=== PATIENT | male | born 1995 | race Caucasian/White ===

== ENCOUNTER 2016-10-11 16:09 | Emergency (ER) | payer OTHER ==
[2016-10-11] MEDS ORDERED: KETOROLAC TROMETHAMINE 60 MG/2 ML SDV IM ONE (16:47)
--- NOTE | 2016-10-11 16:49 | ER Document Report ---
ED Medical Screen (RME) - General Chief Complaint: Groin Pain Stated Complaint: GROIN INJURY Time Seen by Provider: 10/11/16 16:41 Mode of Arrival: Ambulatory Information source: Patient Notes: Patient presents emergency department with left-sided testicular pain that started yesterday. Patient reports pain shoots up. Patient reports pain started increased after having sex. 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 denies pain with void TRAVEL OUTSIDE OF THE [place] IN LAST 30 DAYS: No - Related Data Allergies/Adverse Reactions: cefdinir Allergy (Verified 10/11/16 16:17) hydrocodone Allergy (Verified 10/11/16 16:17) Past Medical History Renal/ Medical History: Denies: Hx Peritoneal Dialysis Physical Exam - Vital signs Vitals: Temp Pulse Resp BP Pulse Ox 98.9 F 55 L 17 131/83 H 100 10/11/16 16:18 10/11/16 16:18 10/11/16 16:18 10/11/16 16:18 10/11/16 16:18 Course - Vital Signs Vital signs: Temp Pulse Resp BP Pulse Ox 98.9 F 55 L 17 131/83 H 100 10/11/16 16:18 10/11/16 16:18 10/11/16 16:18 10/11/16 16:18 10/11/16 16:18
[2016-10-11] MEDS ORDERED: SULFAMETHOXAZOLE/TRIMETHOPRIM 800-160 MG TABLET PO ONE (20:54)
[2016-10-11] MEDS ORDERED: CLINDAMYCIN HCL 150 MG CAPSULE PO ONE (20:55)
--- NOTE | 2016-10-11 20:55 | ER Document Report ---
ED GI/ - General Mode of Arrival: Ambulatory Information source: Patient TRAVEL OUTSIDE OF THE [place] IN LAST 30 DAYS: No - HPI Patient complains to provider of: Testicular pain Associated symptoms: Other - See above - General Chief Complaint: Groin Pain Stated Complaint: testicular pain Time Seen by Provider: 10/11/16 16:41 Notes: Patient is a 21 year old male who presents to the emergency department complaining of left testicular pain. Patient reports the pain began after sexual intercourse today and is exacerbated by standing and movement, patient has not had pain similar to this before and denies any recent trauma to the area. Patient reports some swelling and redness to the area and states he started a fever while in the waiting room. Patient denies hematuria, dysuria, penile discharge, and rash. Patient states he has a right testicular cyst that he noticed in 8th grade, denies any pain in that testicle. (GABE GORMAN) - Related Data Allergies/Adverse Reactions: cefdinir Allergy (Verified 10/11/16 16:49) hydrocodone Allergy (Verified 10/11/16 16:49) Past Medical History - General Information source: Patient - Social History Smoking Status: Never Smoker Chew tobacco use (# tins/day): No Frequency of alcohol use: None Family History: Reviewed & Not Pertinent Patient has suicidal ideation: No Patient has homicidal ideation: No Review of Systems - Review of Systems Constitutional: See HPI, Fever EENT: No symptoms reported Cardiovascular: No symptoms reported Respiratory: No symptoms reported Gastrointestinal: No symptoms reported Genitourinary: denies: Dysuria, Hematuria Male Genitourinary: See HPI, Testicular pain, Other - swelling and redness right testicle. denies: Penile discharge Musculoskeletal: No symptoms reported Skin: denies: Rash Hematologic/Lymphatic: No symptoms reported Neurological/Psychological: No symptoms reported -: Yes All other systems reviewed and negative Physical Exam - Vital signs Interpretation: Normal - General General appearance: Appears well, Alert - HEENT Head: Normocephalic, Atraumatic - Respiratory Respiratory status: No respiratory distress - Cardiovascular Normal capillary refill: Yes - Abdominal Distension: No distension - Genitourinary Inspection: Other - left hemiscrotum erythematous, abrasion between scrotum and thigh that is tender to palpation. Cremasteric reflex in tact. Skin is tender to palpation. No evidence of abscess. - Extremities General upper extremity: Normal inspection General lower extremity: Normal inspection - Neurological Neuro grossly intact: Yes Course - Re-evaluation Re-evalutation: 10/11/16 20:55 Ultrasound shows hydrocele on the left and cyst on the right, no acute torsion, no signs of infection on the ultrasound. Patient does have signs of cellulitis on physical exam, no evidence of vidya's gangrene. Patient will be treated with clindamycin. Asked to return for fevers, any increasing redness or any new or concerning symptoms. (BETINA AGARWAL) - Vital Signs Vital signs: Temp Pulse Resp BP Pulse Ox 98.9 F 55 L 17 131/83 H 100 10/11/16 16:18 10/11/16 16:18 10/11/16 16:18 10/11/16 16:18 10/11/16 16:18 Discharge - Discharge Clinical Impression: Cellulitis of scrotum Condition: Stable Disposition: HOME, SELF-CARE Instructions: Cellulitis ([facility]) Prescriptions: Clindamycin HCl 300 mg PO TID 7 Days Scribe Attestation: 10/11/16 21:08 I personally performed the services described in the documentation, reviewed and edited the documentation which was dictated to the scribe in my presence, and it accurately records my words and actions. (BETINA AGARWAL) Scribe Documentation - Scribe Written by Alexx:: [email or web address] Page, 10/11/16, 2102 acting as scribe for :: Diamond
[2016-10-11 21:38] VITALS: BP 133/78
== END 2016-10-11 21:25 | disposition home or self-care (01) ==
LOC: ER 16:09
DX: N49.2 Inflammatory disorders of scrotum (principal); N50.812 Left testicular pain; N50.89 Other specified disorders of the male genital organs; R50.9 Fever, unspecified
CPT/HCPCS: 99283; 96372; 76870; 93976; J1885